=== PATIENT | female | born 1970 | race Caucasian/White ===

== ENCOUNTER 2016-12-16 11:18 | Emergency (ER) | payer SELFPAY ==
[2016-12-16 11:23] VITALS: BP 138/70
[2016-12-16] MEDS ORDERED: SULFAMETHOXAZOLE/TRIMETHOPRIM 800-160 MG TABLET PO ONE (11:45)
[2016-12-16] MEDS ORDERED: CEPHALEXIN 500 MG CAPSULE PO ONE (11:45)
[2016-12-16] MEDS ORDERED: IBUPROFEN 800 MG TABLET PO ONE (11:45)
[2016-12-16] MEDS ORDERED: DIPH/PERTUSS(ACELL)/TETANUS VAC/PF 0.5 ML SYR (>=10YO) IM ONE (11:45)
--- NOTE | 2016-12-16 11:48 | ER Document Report ---
HPI - HPI Patient complains to provider of: wrist injury Onset: Yesterday Onset/Duration: Gradual Quality of pain: Achy Pain Level: 3 Context: Patient states that she reached behind a desk and cut her wrists on a sharp object yesterday. Patient states today area has become swollen and painful and she is concerned that she is developing an infection. Associated Symptoms: Other - Left wrist pain. denies: Fever Exacerbated by: Movement Relieved by: Denies Similar symptoms previously: No Recently seen / treated by doctor: No - ROS ROS below otherwise negative: Yes Systems Reviewed and Negative: Yes All other systems reviewed and negative - CONSTITUTIONAL Constitutional: DENIES: Fever, Chills - REPRODUCTIVE Reproductive: DENIES: : - MUSCULOSKELETAL Musculoskeletal: REPORTS: Extremity pain, Swelling - DERM Skin Color: Erythema Skin Problems: Abrasion Past Medical History - General Information source: Patient - Social History Smoking Status: Never Smoker Frequency of alcohol use: None Drug Abuse: Other - iv drug use - last use several months ago Occupation: gis mapping technician Family History: Malignancy Renal/ Medical History: Denies: Hx Peritoneal Dialysis GI Medical History: Reports: Hx Gastroesophageal Reflux Disease Past Surgical History: Reports: Hx Hysterectomy, Hx Orthopedic Surgery - left knee arthroscopic surgery, Hx Tonsillectomy, Hx Tubal Ligation Vertical Provider Document - CONSTITUTIONAL Agree With Documented VS: Yes Exam Limitations: No Limitations General Appearance: WD/WN, No Apparent Distress - INFECTION CONTROL TRAVEL OUTSIDE OF THE [place] IN LAST 30 DAYS: No - HEENT HEENT: Atraumatic, Normocephalic - NECK Neck: Normal Inspection, Supple - RESPIRATORY Respiratory: Breath Sounds Normal, No Respiratory Distress O2 Sat by Pulse Oximetry: 95 - CARDIOVASCULAR Cardiovascular: Regular Rate, Regular Rhythm, No Murmur Pulses: Normal: Radial - MUSCULOSKELETAL/EXTREMETIES Musculoskeletal/Extremeties: MAEW, Tender - Left wrist tenderness over the radial aspect, patient with abrasion over the volar aspect of left wrist - NEURO Level of Consciousness: Awake, Alert, Appropriate Motor/Sensory: No Motor Deficit - DERM Integumentary: Warm, Dry, Abscess - Alert aspect of left wrist with surrounding erythema, palpable area of fluctuance. Patient with what appears to be multiple track ba to bilateral hands and wrist with makeup covering skin lesions Course - Re-evaluation Re-evalutation: 12/16/16 12:29 Patient initially denied any history of drug use, after confrontation with exam findings, and did acknowledge that she does have a previous history of IV drug use although states last use was several months ago. Patient insistent that she injured her wrist by cutting it on unknown sharp object yesterday at work. - Vital Signs Vital signs: Temp Pulse Resp BP Pulse Ox 98.1 F 81 16 138/70 H 95 12/16/16 11:23 12/16/16 11:23 12/16/16 11:23 12/16/16 11:23 12/16/16 11:23 Procedures - Incision and Drainage Left Wrist Type: Simple I&D procedure: Betadine prep applied Incision Method: Incision made with needle Amount/type of drainage: Moderate amount of purulent drainage removed after incision with needle Hands front picture: 1 - abscess with overlying abrasion and surrounding erythema Discharge - Discharge Clinical Impression: Abscess, Encounter for incision and drainage procedure Cellulitis Qualifiers: Site of cellulitis: extremity Site of cellulitis of extremity: upper extremity Laterality: left Qualified Code(s): L03.114 - Cellulitis of left upper limb Condition: Stable Disposition: HOME, SELF-CARE Instructions: Anti-Inflammatory Medication ([facility]), Cellulitis ([facility]), Cephalexin ([facility]), Trimethoprim-Sulfa ([facility]), Post Incision and Drainage, Abscess ([facility]) Additional Instructions: Generic discharge Return immediately for any new or worsening symptoms Followup with your primary care provider, call tomorrow to make a followup appointment Prescriptions: Cephalexin Monohydrate [Keflex 500 mg Capsule] 500 mg PO Q6H 7 Days Naproxen [Naprosyn 250 Nmg Tablet] 1 tab PO BID #14 tablet Sulfamethoxazole/Trimethoprim [Bactrim Ds Tablet] 1 each PO BID #20 tablet Referrals: SAMUEL AMBRIZ MD [Primary Care Provider] - 12/18/16
== END 2016-12-16 12:10 | disposition home or self-care (01) ==
LOC: ER 11:18
PROC: 0H9EXZZ Drainage of Left Lower Arm Skin, External Approach (ICD-10-PCS; principal; 2016-12-16)
DX: L03.114 Cellulitis of left upper limb (principal); S61.512A Laceration without foreign body of left wrist, initial encounter; W45.8XXA Other foreign body or object entering through skin, initial encounter
CPT/HCPCS: 90471; 90715; 99283

== ENCOUNTER 2017-12-28 07:49 | Emergency (ER) | payer SELFPAY ==
[2017-12-28 08:08] VITALS: BP 156/71
[2017-12-28] MEDS ORDERED: IBUPROFEN 800 MG TABLET PO ONE (09:34)
--- NOTE | 2017-12-28 09:58 | RADIOLOGY REPORT (SQ) ---
EXAM DESCRIPTION: WRIST LEFT 3 VIEWS COMPLETED DATE/TIME: 12/28/2017 9:50 am REASON FOR STUDY: pain swelling COMPARISON: None. NUMBER OF VIEWS: Three views. TECHNIQUE: AP, lateral, and oblique radiographic images acquired of the left wrist. LIMITATIONS: None. FINDINGS: MINERALIZATION: Normal. BONES: No acute fracture or dislocation. No worrisome bone lesions. Normal alignment. No significant arthritic changes. JOINTS AND SOFT TISSUES: No swelling. No calcifications. No foreign bodies. OTHER: No other significant finding. IMPRESSION: NEGATIVE STUDY OF THE LEFT WRIST. NO ACUTE POST-TRAUMATIC FINDINGS. NO EXPLANATION FOR P AIN. TECHNICAL DOCUMENTATION: JOB ID: [id number] [employer]- All Rights Reserved Reading location - IP/workstation name: [email or web address]
[2017-12-28] MEDS ORDERED: PREDNISONE 20 MG TABLET PO ONE (10:44)
--- NOTE | 2017-12-28 10:46 | ER Document Report ---
ED Hand/Wrist Injury - General Chief Complaint: Wrist Pain Stated Complaint: WRIST SWOLLEN Time Seen by Provider: 12/28/17 09:34 Mode of Arrival: Ambulatory Information source: Patient Notes: 7-year-old female presented ED for complaint of left wrist pain with redness and swelling for 4-5 days. She denied it. 3 but stated that the patient is getting more more painful. Denies any history of gout or arthritis. She did not have any injuries there is no lacerations there is no cuts. TRAVEL OUTSIDE OF THE [place] IN LAST 30 DAYS: No - HPI Injury to: Wrist Onset: Other - 4-5 days Timing: Worse Quality of pain: Burning, Pressure Severity: Moderate Pain Level: 2 Context: Swelling, Other - Related Data Allergies/Adverse Reactions: cyclobenzaprine HCl [From Flexeril] Adverse Reaction (Verified 12/16/16 11:22) Past Medical History - General Information source: Patient - Social History Smoking Status: Former Smoker Cigarette use (# per day): No Chew tobacco use (# tins/day): No Smoking Education Provided: No Frequency of alcohol use: None Drug Abuse: None Occupation: [employer] Lives with: Alone Family History: Malignancy Patient has suicidal ideation: No Patient has homicidal ideation: No - Past Medical History Cardiac Medical History: Reports: None Pulmonary Medical History: Reports: None EENT Medical History: Reports: None Neurological Medical History: Reports: None Endocrine Medical History: Reports: None Renal/ Medical History: Reports: None Malignancy Medical History: Reports: None GI Medical History: Reports: Hx Gastroesophageal Reflux Disease Musculoskeletal Medical History: Reports Hx Musculoskeletal Deformity Skin Medical History: Reports None Psychiatric Medical History: Reports: None Traumatic Medical History: Reports: None Infectious Medical History: Reports: None Past Surgical History: Reports: Hx Hysterectomy, Hx Orthopedic Surgery - left knee arthroscopic surgery, Hx Tonsillectomy, Hx Tubal Ligation Review of Systems - Review of Systems Constitutional: No symptoms reported EENT: No symptoms reported Cardiovascular: No symptoms reported Respiratory: No symptoms reported Gastrointestinal: No symptoms reported Genitourinary: No symptoms reported Female Genitourinary: No symptoms reported Musculoskeletal: Other - In his swelling left wrist Skin: Change in color - Slight erythema to the left wrist injuries Hematologic/Lymphatic: No symptoms reported Neurological/Psychological: No symptoms reported Physical Exam - Vital signs Vitals: Temp Pulse Resp BP Pulse Ox 98.6 F 99 16 156/71 H 100 12/28/17 08:05 12/28/17 08:05 12/28/17 08:05 12/28/17 08:05 12/28/17 08:05 Interpretation: Normal - General General appearance: Appears well, Alert - HEENT Head: Normocephalic, Atraumatic Eyes: Normal Pupils: PERRL - Respiratory Respiratory status: No respiratory distress Chest status: Nontender Breath sounds: Normal Chest palpation: Normal - Cardiovascular Rhythm: Regular Heart sounds: Normal auscultation Murmur: No - Abdominal Inspection: Normal Distension: No distension Bowel sounds: Normal Tenderness: Nontender Organomegaly: No organomegaly - Back Back: Normal, Nontender - Extremities General upper extremity: Normal ROM, Normal temperature General lower extremity: Normal inspection, Nontender, Normal color, Normal ROM , Normal temperature, Normal weight bearing. No: Phani's sign Wrist: Tender, Other - Erythema with swelling to left wrist. She has no injuries there are no lacerations no signs of any abscess or cellulitis. The redness is to the entire wrist. It is slightly warm to the touch. She has been afebrile and has had no signs or symptoms of any infection.. No: Abrasion , Axial load of thumb pain, Deformity, Dislocation, Ecchymosis, Instability, Laceration, Limited ROM, Navicular tenderness - Neurological Neuro grossly intact: Yes Cognition: Normal Orientation: AAOx4 [place] Coma Scale Eye Opening: Spontaneous [place] Coma Scale Verbal: Oriented [place] Coma Scale Motor: Obeys Commands [place] Coma Scale Total: 15 Speech: Normal Motor strength normal: LUE, RUE, LLE, RLE Sensory: Normal - Psychological Associated symptoms: Normal affect, Normal mood - Skin Skin Temperature: Warm Skin Moisture: Dry Skin Color: Normal Course - Re-evaluation Re-evalutation: 12/28/17 22:24 Patient was started on prednisone and ibuprofen and given instructions to follow -up with the orthopedic hand surgeon on Sunday. She was instructed to return to the ED for any increase in swelling redness or any fevers or any other signs of infection. - Vital Signs Vital signs: Temp Pulse Resp BP Pulse Ox 98.6 F 99 16 156/71 H 100 12/28/17 08:05 12/28/17 08:05 12/28/17 08:05 12/28/17 08:05 12/28/17 08:05 Procedures - Immobilization Left Wrist Time completed: 10:50 Immobilizer type: Cock-up Performed by: PCT Post-Proc Neuro Vasc Exam: Normal Alignment checked and good: Yes Discharge - Discharge Clinical Impression: Pain and swelling of left wrist Condition: Stable Disposition: HOME, SELF-CARE Additional Instructions: Gout You have been diagnosed as having gout. Gout is a problem caused by an excess of uric acid, a natural chemical found in the body. The cause of this disease is unknown. Gout arthritis occurs when crystals of uric acid form in the joints. The big toe is the most common joint involved, but any joint can become affected. Persons with gout may also form uric acid kidney stones, resulting in flank pain and blood in the urine. Nodules of uric acid may form under the skin. The first step of treatment is to decrease the inflammation in the joint with antiinflammatory medication. Medication to lower the uric acid level in the blood may then be prescribed. This medication should be taken regularly, as any sudden change in dosage may provoke an attack of gout. Some foods, such as red meat, can provoke an attack in some gout sufferers. Call the doctor if new symptoms arise, or if you do not improve. Gout Diet Changing your diet can decrease the uric acid in your blood. High levels of uric acid cause gouty arthritis and uric acid kidney stones. If you have gout , you should avoid meats that are high in purine. Meat products to avoid include liver, kidneys, and brains. In general, poultry is better than red meats. Seafoods to avoid include anchovies, sardines, hernández, mackerel, and scallops. In addition to limiting purine-rich foods, people with gout should limit protein intake to 10-15% of total calories. Carbohydrate intake should be around 50% of total daily calories. Limit fat intake to 30% of total daily calories. Cholesterol intake should be less than 300 mg/day. Maintain or achieve a healthy body weight. Weight loss should be gradual. Rapid weight loss can actually increase uric acid levels temporarily. Alcohol, especially beer, should be avoided. Get plenty of fluids. This dilutes urinary uric acid, and helps prevent uric acid kidney stones. Drink eight to twelve cups of water daily. SPLINT PRECAUTIONS: A splint has been placed. This will protect the area while healing begins. Your problem does NOT normally require a cast. It MUST, however, be held still! Keep the splint on ALL THE TIME until instructed to remove it by the doctor. As you begin to use the area, be careful. You shouldn't do anything which causes discomfort -- you may disturb the injury even with the splint in place. After the initial period of rest and elevation, if splint does not prevent pain when you move, come back. You may require placement of a different splint , or a cast. If there is unexpected severe pain, or numbness, discoloration, or swelling beyond the splint, you should return at once. If you feel that the splint has broken or become loose, come back. USE OF [id number] IBUPROFEN: Ibuprofen (Advil, Nuprin, Medipren, Motrin IB) is a medication for fever and pain control. In addition, it has anti- inflammatory effects which may be beneficial, especially in the treatment of injuries. It's best to take ibuprofen with food. Persons with ulcer disease or allergy to aspirin should notify their physician of this before taking ibuprofen. Ibuprofen can be given every four to six hours, for a total of four doses daily. Age Pain or fever dose Antiinflammatory dose 6-8 yr 200 mg (1 tab) 200 mg (1 tab) 9-11 yr 200 mg (1 tab) 200-400 mg (1-2 tab) 11-14 yr 200-400 mg (1-2 tab) 400 mg (2 tab) 15-adult 400 mg (2 tab) 600 mg (3 tab) FOLLOW-UP CARE: If you have been referred to a physician for follow-up care, call the physician s office for an appointment as you were instructed or within the next two days. If you experience worsening or a significant change in your symptoms, notify the physician immediately or return to the Emergency Department at any time for re-evaluation. Prescriptions: Prednisone [Sterapred Ds] 1 pkg PO ASDIR PRN 12 Days tab.ds.pk PRN Reason: Forms: Elevated Blood Pressure, Smoking Cessation Education Referrals: SAMUEL AMBRIZ MD [Primary Care Provider] - Follow up tomorrow KOSTAS PERSAUD DO [ACTIVE STAFF] - Follow up tomorrow
== END 2017-12-28 11:00 | disposition home or self-care (01) ==
LOC: ER 07:49
DX: M25.572 Pain in left ankle and joints of left foot (principal); M25.432 Effusion, left wrist; L53.9 Erythematous condition, unspecified; Z87.891 Personal history of nicotine dependence
CPT/HCPCS: 99283; 73110; L3908; J7512

== ENCOUNTER 2018-05-11 10:56 | Emergency (ER) | payer SELFPAY ==
[2018-05-11 11:00] VITALS: BP 149/76
--- NOTE | 2018-05-11 11:06 | ER Document Report ---
ED Medical Screen (RME) - General Chief Complaint: Abscess Stated Complaint: POSSIBLE ABSCESS Time Seen by Provider: 05/11/18 11:04 Mode of Arrival: Ambulatory Information source: Patient TRAVEL OUTSIDE OF THE [place] IN LAST 30 DAYS: No - HPI Patient complains to provider of: L hand pain Onset: Other - pt. with tender, swollen area on dorsal aspect of L hand which started draining last pm. - Related Data Allergies/Adverse Reactions: cyclobenzaprine HCl [From [facility]] Adverse Reaction (Verified 05/11/18 10:57) Past Medical History - Social History Chew tobacco use (# tins/day): No Frequency of alcohol use: None Drug Abuse: None Renal/ Medical History: Denies: Hx Peritoneal Dialysis GI Medical History: Reports: Hx Gastroesophageal Reflux Disease Musculoskeltal Medical History: Reports Hx Musculoskeletal Deformity Past Surgical History: Reports: Hx Hysterectomy, Hx Orthopedic Surgery - left knee arthroscopic surgery, Hx Tonsillectomy, Hx Tubal Ligation Physical Exam - Vital signs Vitals: Temp Pulse Resp BP Pulse Ox 98.7 F 94 16 149/76 H 96 05/11/18 10:58 05/11/18 10:58 05/11/18 10:58 05/11/18 10:58 05/11/18 10:58 Course - Vital Signs Vital signs: Temp Pulse Resp BP Pulse Ox 98.7 F 94 16 149/76 H 96 05/11/18 10:58 05/11/18 10:58 05/11/18 10:58 05/11/18 10:58 05/11/18 10:58 Doctor's Discharge - Discharge Referrals: SAMUEL AMBRIZ MD [Primary Care Provider] - Follow up as needed
[2018-05-11 11:23] LABS: ABSOLUTE BASOPHILS # (AUTO) 0.1 10^3/uL (0.0-0.2); ABSOLUTE EOSINOPHILS # (AUTO) 0.2 10^3/uL (0.0-0.6); ABSOLUTE LYMPHOCYTES (AUTO) 2.6 10^3/uL (0.5-4.7); ABSOLUTE MONOCYTES (AUTO) 0.8 10^3/uL (0.1-1.4); BASOPHILS % (AUTO) 0.9 % (0-2); EOSINOPHILS % (AUTO) 1.6 % (0-6); HEMATOCRIT 35.9 % (36.0-47.0); HEMOGLOBIN 11.9 g/dL (12.0-15.5); LYMPHOCYTES % (AUTO) 20.2 % (13-45); MEAN CORPUSCULAR HEMOGLOBIN 28.5 pg (27.0-33.4); MEAN CORPUSCULAR HGB CONC 33.3 g/dL (32.0-36.0); MEAN CORPUSCULAR VOLUME 86 fl (80-97); MONOCYTES % (AUTO) 6.6 % (3-13); PLATELET COUNT 484 10^3/uL (150-450); RED CELL DISTRIBUTION WIDTH 13.9 % (11.5-14.0); SEGMENTED NEUTROPHILS % (AUTO) 70.7 % (42-78); TOTAL CELLS COUNTED % (AUTO) 100 %; WHITE BLOOD COUNT 12.8 10^3/uL (4.0-10.5)
[2018-05-11 11:35] LABS: ALANINE AMINOTRANSFERASE 24 U/L (9-52); ALBUMIN 4.5 g/dL (3.5-5.0); ALKALINE PHOSPHATASE 60 U/L (38-126); ANION GAP 13 (5-19); ASPARTATE AMINO TRANSFERASE 27 U/L (14-36); BILIRUBIN,DIRECT 0.3 mg/dL (0.0-0.4); BILIRUBIN,TOTAL 0.7 mg/dL (0.2-1.3); BLOOD UREA NITROGEN 13 mg/dL (7-20); CALCIUM 9.8 mg/dL (8.4-10.2); CARBON DIOXIDE 24 mmol/L (22-30); CHLORIDE 99 mmol/L (98-107); GLUCOSE 111 mg/dL (75-110); POTASSIUM 4.4 mmol/L (3.6-5.0); SODIUM 135.9 mmol/L (137-145); TOTAL PROTEIN 7.9 g/dL (6.3-8.2)
--- NOTE | 2018-05-11 11:38 | ER Document Report ---
ED General - General Chief Complaint: Abscess Stated Complaint: POSSIBLE ABSCESS Time Seen by Provider: 05/11/18 11:04 Mode of Arrival: Ambulatory TRAVEL OUTSIDE OF THE [place] IN LAST 30 DAYS: No - HPI Patient complains to provider of: left hand pain Onset: Other - 47-year-old female [id number] Molina that presents for evaluation of pain and swelling along the base of her left hand. She notes that this is developed over the last couple of days. Denies any fevers or chills chest pain shortness of breath abdominal pain diarrhea consultation dysuria previous episodes of abscesses in the past she notes that she is concerned that it needs to be drained and prompted her to seek evaluation today. She has not tried anything to try and make this better. - Related Data Allergies/Adverse Reactions: cyclobenzaprine HCl [From Flexeril] Adverse Reaction (Verified 05/11/18 10:57) Past Medical History - General Information source: Patient - Social History Smoking Status: Never Smoker Chew tobacco use (# tins/day): No Frequency of alcohol use: None Drug Abuse: None Family History: Malignancy Patient has suicidal ideation: No Patient has homicidal ideation: No Renal/ Medical History: Denies: Hx Peritoneal Dialysis GI Medical History: Reports: Hx Gastroesophageal Reflux Disease Musculoskeletal Medical History: Reports Hx Musculoskeletal Deformity Past Surgical History: Reports: Hx Hysterectomy, Hx Orthopedic Surgery - left knee arthroscopic surgery, Hx Tonsillectomy, Hx Tubal Ligation Review of Systems - Review of Systems -: Yes All other systems reviewed and negative Physical Exam - Vital signs Vitals: Temp Pulse Resp BP Pulse Ox 98.7 F 94 16 149/76 H 96 05/11/18 10:58 05/11/18 10:58 05/11/18 10:58 05/11/18 10:58 05/11/18 10:58 Interpretation: Normal - General General appearance: Appears well, Alert - HEENT Head: Normocephalic, Atraumatic Eyes: Normal Pupils: PERRL - Respiratory Respiratory status: No respiratory distress Chest status: Nontender Breath sounds: Normal Chest palpation: Normal - Cardiovascular Rhythm: Regular Heart sounds: Normal auscultation Murmur: No - Abdominal Inspection: Normal Distension: No distension Bowel sounds: Normal Tenderness: Nontender Organomegaly: No organomegaly - Back Back: Normal, Nontender - Extremities General lower extremity: Normal inspection, Nontender, Normal color, Normal ROM, Normal temperature, Normal weight bearing. No: Phani's sign Forearm: Normal Hand: Other - The left hand demonstrates marked erythema along the ulnar aspect of the palm of the hand with an area of swelling in the middle of the pad with a erythematous taut top, there is some stranding proximally which passes the wrist over the dorsal aspect of the hand - Neurological Neuro grossly intact: Yes Cognition: Normal Orientation: AAOx4 Kerri Coma Scale Eye Opening: Spontaneous Kerri Coma Scale Verbal: Oriented Kerri Coma Scale Motor: Obeys Commands [place] Coma Scale Total: 15 Speech: Normal Motor strength normal: LUE, RUE, LLE, RLE Sensory: Normal - Psychological Associated symptoms: Normal affect, Normal mood - Skin Skin Temperature: Warm Skin Moisture: Dry Skin Color: Normal Course - Re-evaluation Re-evalutation: 05/11/18 15:57 47-year-old female presents for swelling and redness along the base of the left hand. Bedside ultrasound demonstrates that the patient does have a fluid collection along the base of the left hand without any obvious vascular involvement. There is no obvious foreign body. X-ray ordered through triage is not demonstrate any abnormality. Labs drawn through triage demonstrate a leukocytosis and elevated CRP. I discussed with the patient the options including IV antibiotics blood cultures etc. she received a dose of IV antibiotics prior to my bedside ultrasound, there is a fluid collection which appears amenable to drainage at the bedside. We discussed observation admission to the hospital and further IV antibiotics for potential trial of oral antibiotics at home she is requested a trial of oral antibiotics at home and follow-up. Patient received vancomycin through the IV. She was instructed to come back in case of any worsening. She was given a follow-up appointment with Dr. Santiago in his clinic. At the t aidan of discharge she was able to range the hand appropriately, there is a strong palpable radial pulse. Brisk capillary refill in all 5 digits. She was discharged with return precautions and expectant management. - Vital Signs Vital signs: Temp Pulse Resp BP Pulse Ox 98.7 F 94 16 149/76 H 96 05/11/18 10:58 05/11/18 10:58 05/11/18 10:58 05/11/18 10:58 05/11/18 10:58 - Laboratory Result Diagrams: 05/11/18 11:10 05/11/18 11:10 Laboratory results interpreted by me: 05/11/18 05/11/18 05/11/18 11:10 11:10 11:10 WBC 12.8 H Hgb 11.9 L Hct 35.9 L Plt Count 484 H Absolute Neutrophils 9.0 H ESR 49 H Sodium 135.9 L Glucose 111 H C-Reactive Protein 05/11/18 11:10 WBC Hgb Hct Plt Count Absolute Neutrophils ESR Sodium Glucose C-Reactive Protein 25.8 H Procedures - Incision and Drainage Left Hand Type: Simple, Single Anesthetic type: 1% Lidocaine w/epi mL's of anesthetic: 8 Blade size: 11 I&D procedure: Betadine prep applied Incision Method: Incision made by scalpel Amount/type of drainage: 5 Hands back picture: 1 - Erythema and swelling - Ultrasound/Bedside Ultrasound/Bedside Ultrasound: Other - Ultrasound of the soft tissue of the hand demonstrates a anechoic 2 x 1 cm fluid collection with cobblestoning in the surrounding skin Discharge - Discharge Clinical Impression: Hand abscess Cellulitis Qualifiers: Site of cellulitis: unspecified site Qualified Code(s): L03.90 - Cellulitis, unspecified Condition: Good Disposition: HOME, SELF-CARE Instructions: Abscess ([facility]), Oral Narcotic Medication ([facility]), Post Incision and Drainage, Trimethoprim-Sulfa ([facility]) Additional Instructions: Your seen today in the emergency department for the abscess on her hand. The abscess on her hand was drained. You also cellulitis. Cellulitis in your arm is almost bad enough to require hospitalization, if you have any worsening pain, fevers, chills you should return to the emergency room. Prescriptions: Hydrocodone/Acetaminophen [[place] 5-325 mg Tablet] 1 tab PO TID PRN #9 tablet PRN Reason: Sulfamethoxazole/Trimethoprim [Bactrim Ds Tablet] 1 each PO BID 10 Days #20 tablet Referrals: KOSTAS PERSAUD DO [ACTIVE STAFF] - Follow up in 3-5 days
--- NOTE | 2018-05-11 11:51 | RADIOLOGY REPORT (SQ) ---
EXAM DESCRIPTION: HAND LEFT 3 VIEWS COMPLETED DATE/TIME: 05/11/2018 11:42 am REASON FOR STUDY: L hand pain COMPARISON: None. EXAM PARAMETERS: NUMBER OF VIEWS: Three views. TECHNIQUE: AP, lateral and oblique radiographic images acquired of the left hand. LIMITATIONS: None. FINDINGS: MINERALIZATION: Normal. BONES: No acute fracture or dislocation. No worrisome bone lesions. JOINTS: No effusions. SOFT TISSUES: No soft tissue swelling. No foreign body. OTHER: No other significant finding. IMPRESSION: NEGATIVE STUDY OF THE LEFT HAND. NO RADIOGRAPHIC EVIDENCE OF ACUTE INJURY. TECHNICAL DOCUMENTATION: JOB ID: [id number] [employer]- All Rights Reserved Reading location - IP/workstation name: [email or web address]
[2018-05-11] MEDS ORDERED: VANCOMYCIN HCL INJ 1000 MG VIAL IV ONE (12:08)
[2018-05-11] MEDS ORDERED: LIDOCAINE 1%/EPINEPHRINE INJ 20 ML VIAL INJ ONE (12:56)
== END 2018-05-11 16:19 | disposition home or self-care (01) ==
LOC: ER 10:56
DX: L03.90 Cellulitis, unspecified (principal); L02.512 Cutaneous abscess of left hand
CPT/HCPCS: 36415; 99284; 96365; 96366; 87040; 85025; 85652; 86140; 80053; 73130; 10060; A6266; J3490; J3370

== ENCOUNTER 2019-01-12 09:10 | Emergency (ER) | payer SELFPAY ==
--- NOTE | 2019-01-12 10:43 | ER Document Report ---
ED Medical Screen (RME) - General Chief Complaint: Abdominal Pain Stated Complaint: ABDOMINAL PAIN Time Seen by Provider: 01/12/19 10:38 Primary Care Provider: JU EDWARDS MD [Primary Care Provider] - Follow up as needed Mode of Arrival: Ambulatory Information source: Patient Notes: 48 yo female presents to ed for left upper quadrant abdominal pain for 3 days. No NVD. 2/5 sometimes sharp stabbing now cramping. denies any burning frequency or pain with urination. Last bm this am. Patient is alert oriented respirations regular and unlabored speaking in full sentences walks with even steady gait. I have greeted and performed a rapid initial assessment of this patient. A comprehensive ED assessment and evaluation of the patient, analysis of test results and completion of medical decision making process will be conducted by an additional ED providers. TRAVEL OUTSIDE OF THE [place] IN LAST 30 DAYS: No - Related Data Allergies/Adverse Reactions: cyclobenzaprine HCl [From Flexeril] Adverse Reaction (Verified 01/12/19 10:43) Past Medical History - Social History Cigarette use (# per day): No Frequency of alcohol use: None Drug Abuse: None Lives with: Family Renal/ Medical History: Denies: Hx Peritoneal Dialysis GI Medical History: Reports: Hx Gastroesophageal Reflux Disease Musculoskeltal Medical History: Reports Hx Arthritis, Reports Hx Fibromyalgia, Reports Hx Musculoskeletal Deformity Past Surgical History: Reports: Hx Hysterectomy, Hx Orthopedic Surgery - left knee arthroscopic surgery, Hx Tonsillectomy, Hx Tubal Ligation - Immunizations Immunizations up to date: No Hx Diphtheria, Pertussis, Tetanus Vaccination: No Physical Exam - Vital signs Vitals: Temp Pulse Resp BP Pulse Ox 98.1 F 78 18 141/73 H 99 01/12/19 09:22 01/12/19 09:22 01/12/19 09:22 01/12/19 09:22 01/12/19 09:22 Course - Vital Signs Vital signs: Temp Pulse Resp BP Pulse Ox 97.9 F 79 16 133/77 H 94 01/12/19 12:22 01/12/19 12:22 01/12/19 12:22 01/12/19 12:22 01/12/19 12:22 - Laboratory Result Diagrams: 01/12/19 11:32 01/12/19 11:32 Laboratory results interpreted by me: 01/12/19 01/12/19 01/12/19 11:01 11:32 11:32 RDW 14.1 H Plt Count 510 H Glucose 147 H Calcium 10.8 H Total Protein 8.6 H Urine Blood SMALL H Ur Leukocyte Esterase LARGE H Doctor's Discharge - Discharge Referrals: JU EDWARDS MD [Primary Care Provider] - Follow up as needed
[2019-01-12 11:21] LABS: APPEARANCE,URINE SLIGHTLY-CLOUDY; BILIRUBIN,URINE NEGATIVE (NEGATIVE); COLOR,URINE STRAW; GLUCOSE, URINE NEGATIVE (NEGATIVE); KETONES,URINE NEGATIVE (NEGATIVE); LEUKOCYTE ESTERASE,URINE LARGE (NEGATIVE); NITRITE,URINE NEGATIVE (NEGATIVE); PROTEIN,URINE NEGATIVE (NEGATIVE); URINE SPECIFIC GRAVITY 1.002; UROBILINOGEN,URINE NEGATIVE mg/dL (<2.0)
[2019-01-12 11:43] LABS: ABSOLUTE BASOPHILS # (AUTO) 0.1 10^3/uL (0.0-0.2); ABSOLUTE LYMPHOCYTES (AUTO) 2.4 10^3/uL (0.5-4.7); ABSOLUTE MONOCYTES (AUTO) 0.5 10^3/uL (0.1-1.4); ABSOLUTE NEUT (AUTO) 6.4 10^3/uL (1.7-8.2); BASOPHILS % (AUTO) 0.7 % (0-2); EOSINOPHILS % (AUTO) 0.3 % (0-6); HEMATOCRIT 38.4 % (36.0-47.0); HEMOGLOBIN 12.5 g/dL (12.0-15.5); LYMPHOCYTES % (AUTO) 25.6 % (13-45); MEAN CORPUSCULAR HEMOGLOBIN 27.7 pg (27.0-33.4); MEAN CORPUSCULAR HGB CONC 32.7 g/dL (32.0-36.0); MEAN CORPUSCULAR VOLUME 85 fl (80-97); MONOCYTES % (AUTO) 5.5 % (3-13); PLATELET COUNT 510 10^3/uL (150-450); RED BLOOD COUNT 4.53 10^6/uL (3.72-5.28); RED CELL DISTRIBUTION WIDTH 14.1 % (11.5-14.0); SEGMENTED NEUTROPHILS % (AUTO) 67.9 % (42-78); TOTAL CELLS COUNTED % (AUTO) 100 %; WHITE BLOOD COUNT 9.5 10^3/uL (4.0-10.5)
[2019-01-12 12:00] LABS: ALBUMIN 4.9 g/dL (3.5-5.0); ALKALINE PHOSPHATASE 83 U/L (38-126); ANION GAP 15 (5-19); ASPARTATE AMINO TRANSFERASE 23 U/L (14-36); BILIRUBIN,DIRECT 0.2 mg/dL (0.0-0.4); BILIRUBIN,TOTAL 0.7 mg/dL (0.2-1.3); BLOOD UREA NITROGEN 13 mg/dL (7-20); CALCIUM 10.8 mg/dL (8.4-10.2); CARBON DIOXIDE 25 mmol/L (22-30); CHLORIDE 98 mmol/L (98-107); GLUCOSE 147 mg/dL (75-110); POTASSIUM 4.2 mmol/L (3.6-5.0); TOTAL PROTEIN 8.6 g/dL (6.3-8.2)
--- NOTE | 2019-01-12 12:03 | ER Document Report ---
ED General - General Chief Complaint: Abdominal Pain Stated Complaint: ABDOMINAL PAIN Time Seen by Provider: 01/12/19 10:38 Primary Care Provider: JU EDWARDS MD [Primary Care Provider] - Follow up as needed Mode of Arrival: Ambulatory TRAVEL OUTSIDE OF THE [place] IN LAST 30 DAYS: No - HPI Notes: 48-year-old female to the emergency department with complaints of left upper quadrant abdominal pain for the past 4 days. She denies any fevers, chills, vomiting, diarrhea, constipation, chest pain, headache, shortness of breath. She states that she takes Percocet on a regular basis for pain management and she states that it does help but she is concerned because it is a new source of pain for her. She denies any blunt trauma. She denies any dysuria. She denies any hematuria. She is never had a kidney stone. She never had pancreatitis. She denies any other complaints. Last bowel movement was this morning. - Related Data Allergies/Adverse Reactions: cyclobenzaprine HCl [From Flexeril] Adverse Reaction (Verified 01/12/19 10:43) Past Medical History - General Information source: Patient - Social History Smoking Status: Never Smoker Cigarette use (# per day): No Chew tobacco use (# tins/day): No Frequency of alcohol use: None Drug Abuse: None Lives with: Family Family History: Malignancy Patient has suicidal ideation: No Patient has homicidal ideation: No Renal/ Medical History: Denies: Hx Peritoneal Dialysis GI Medical History: Reports: Hx Gastroesophageal Reflux Disease Musculoskeletal Medical History: Reports Hx Arthritis, Reports Hx Fibromyalgia, Reports Hx Musculoskeletal Deformity Past Surgical History: Reports: Hx Hysterectomy, Hx Orthopedic Surgery - left knee arthroscopic surgery, Hx Tonsillectomy, Hx Tubal Ligation - Immunizations Immunizations up to date: No Hx Diphtheria, Pertussis, Tetanus Vaccination: No Review of Systems - Review of Systems Constitutional: denies: Chills, Fever EENT: No symptoms reported Cardiovascular: denies: Chest pain, Palpitations, Dyspnea, Syncope, Dizziness, Lightheaded Respiratory: denies: Cough, Short of breath Gastrointestinal: Abdominal pain. denies: Diarrhea, Nausea, Vomiting, Constip ation Genitourinary: denies: Dysuria, Frequency, Flank pain, Hematuria, Incontinence Musculoskeletal: No symptoms reported Skin: No symptoms reported Hematologic/Lymphatic: No symptoms reported Neurological/Psychological: No symptoms reported -: Yes All other systems reviewed and negative Physical Exam - Vital signs Vitals: Temp Pulse Resp BP Pulse Ox 98.1 F 78 18 141/73 H 99 01/12/19 09:22 01/12/19 09:22 01/12/19 09:22 01/12/19 09:22 01/12/19 09:22 Interpretation: Normal - General General appearance: Appears well, Alert In distress: None - HEENT Head: Normocephalic, Atraumatic Eyes: Normal Pupils: PERRL - Respiratory Respiratory status: No respiratory distress Chest status: Nontender Breath sounds: Normal Chest palpation: Normal - Cardiovascular Rhythm: Regular Heart sounds: Normal auscultation Murmur: No - Abdominal Inspection: Normal Distension: No distension Bowel sounds: Normal Tenderness: Nontender - TTP over the LUQ. No tenderness to palpation of the LLQ, RLQ, and RUQ. Mild discomfort to the epigastrium with palpation. There is no rebound, negative Ivor sign, no McBurney., Tender. No: Guarding, Rebound Organomegaly: No organomegaly - Back Back: Normal, Nontender. No: CVA tenderness - Neurological Neuro grossly intact: Yes Cognition: Normal Orientation: AAOx4 Kirby Coma Scale Eye Opening: Spontaneous Kerri Coma Scale Verbal: Oriented Kerri Coma Scale Motor: Obeys Commands Kirby Coma Scale Total: 15 Speech: Normal Motor strength normal: LUE, RUE, LLE, RLE Sensory: Normal - Psychological Associated symptoms: Normal affect, Normal mood - Skin Skin Temperature: Warm Skin Moisture: Dry Skin Color: Normal Course - Re-evaluation Re-evalutation: 01/12/19 15:25 Abdomen/Pelvis CT 01/12/19 12:20 IMPRESSION: No acute findings. Impression:. Left upper quadrant abdominal pain, urinary tract infection. Obtain CT scan of the abdomen which did not show an acute abdominal process. She does not have a leukocytosis, and acute kidney injury, electrolyte derailment, or any other significant abnormalities in labs other than her urine appears to have a UTI. Did give patient a gram of Rocephin as well as pain control here. Plan will be to send home with pain control and antinausea medicines and have her take her regular chronic pain medicine. We will have her follow-up with her primary care physician. Discussed with patient and her significant other who is bedside and they agree with the plan. - Vital Signs Vital signs: Temp Pulse Resp BP Pulse Ox 97.9 F 79 16 133/77 H 94 01/12/19 12:22 01/12/19 12:22 01/12/19 12:22 01/12/19 12:22 01/12/19 12:22 - Laboratory Result Diagrams: 01/12/19 11:32 01/12/19 11:32 Laboratory results interpreted by me: 01/12/19 01/12/19 01/12/19 11:01 11:32 11:32 RDW 14.1 H Plt Count 510 H Glucose 147 H Calcium 10.8 H Total Protein 8.6 H Urine Blood SMALL H Ur Leukocyte Esterase LARGE H - Diagnostic Test Radiology reviewed: Image reviewed, Reports reviewed Discharge - Discharge Clinical Impression: LUQ abdominal pain UTI (urinary tract infection) Qualifiers: Urinary tract infection type: acute cystitis Hematuria presence: without hematuria Qualified Code(s): N30.00 - Acute cystitis without hematuria Condition: Stable Disposition: HOME, SELF-CARE Instructions: Urinary Tract Infection ([facility]), Abdominal Pain ([facility]) Additional Instructions: Return in the next 8 to 24 hours if your symptoms worsen with intractable vomiting, intractable pain, fevers, chest pain, shortness of breath or any other complaints or concerns. Follow-up with primary care without fail the next 2 to 3 days. Take your regular Percocet at home and also take antinausea medicine as well as antibiotics. Push fluids. Rest. Prescriptions: Cephalexin Monohydrate [Keflex 500 mg Capsule] 500 mg PO BID 7 Days #14 capsule Ondansetron [Zofran Odt 4 mg Tablet] 1 - 2 tab PO Q4H PRN #15 tab.rapdis PRN Reason: For Nausea/Vomiting Referrals: JU EDWARDS MD [Primary Care Provider] - Follow up in 3-5 days
[2019-01-12] MEDS ORDERED: MORPHINE SULFATE 10 MG/ML INJ IV ONE (12:20)
[2019-01-12] MEDS ORDERED: ONDANSETRON HCL INJ/PF 4 MG/2 ML SDV IV ONE (12:20)
[2019-01-12] MEDS ORDERED: NORMAL SALINE 1000 ML 1,000 ML IV ONE (12:21)
[2019-01-12] MEDS ORDERED: CEFTRIAXONE 1 GM/D5W RTU 1 GM/50 ML RTUPB IV ONE ×2 (12:21→12:37)
--- NOTE | 2019-01-12 13:31 | RADIOLOGY REPORT (SQ) ---
EXAM DESCRIPTION: CT ABD/PELVIS WITH IV ONLY COMPLETED DATE/TIME: 01/12/2019 1:08 pm REASON FOR STUDY: LUQ abd pain COMPARISON: None. TECHNIQUE: CT scan of the abdomen and pelvis performed using helical scanning technique with dynamic intravenous contrast injection. No oral contrast. Images reviewed with lung, soft tissue, and bone windows. Reconstructed coronal and sagittal MPR images reviewed. Delayed images for evaluation of the urinary system also acquired. All images stored on PACS. All CT scanners at this facility use dose modulation, iterative reconstruction, and/or weight based d osing when appropriate to reduce radiation dose to as low as reasonably achievable (ALARA). [facility]: Dose Right [facility]: CareDose [facility]: Dose Right [facility]: Teradose 4D [facility]: [email or web address] CONTRAST TYPE AND DOSE: contrast/concentration: Isovue mg/ml; Total Contrast Delivered: 90.0 ml; To sanya Saline Delivered: 70.0 ml RENAL FUNCTION: GFR > 60. RADIATION DOSE: CT Rad equipment meets quality standard of care and radiation dose reduction techniq ues were employed. CTDIvol: 8.2 - 9.8 mGy. DLP: 892 mGy-cm.. LIMITATIONS: None. FINDINGS: LOWER CHEST: No significant findings. No nodules or infiltrates. LIVER: Normal size. No masses. No dilated ducts. SPLEEN: Normal size. No focal lesions. PANCREAS: No masses. No significant calcifications. No adjacent inflammation or peripancreatic fluid collections. Pancreatic duct not dilated. GALLBLADDER: No identified stones by CT criteria. No inflammatory changes to suggest cholecystitis. ADRENAL GLANDS: No significant masses or asymmetry. RIGHT KIDNEY AND URETER: No solid masses. No significant calcifications. No hydronephrosis or hyd roureter. LEFT KIDNEY AND URETER: No solid masses. No significant calcifications. No hydronephrosis or hydr oureter. AORTA AND VESSELS: No aneurysm. RETROPERITONEUM: No retroperitoneal adenopathy, hemorrhage or masses. BOWEL AND PERITONEAL CAVITY: No masses or inflammatory changes. No free fluid or peritoneal masses. APPENDIX: Not visualized. PELVIS: No mass. No free fluid. Normal bladder. ABDOMINAL WALL: No masses. No hernias. BONES: Nothing acute. OTHER: No other significant finding. IMPRESSION: No acute findings. TECHNICAL DOCUMENTATION: JOB ID: [id number] Quality ID # [id number]: Final reports with documentation of one or more dose reduction techniques (e.g., Au tomated exposure control, adjustment of the mA and/or kV according to patient size, use of iterative reconstruction technique) 2010 [employer]- All Rights Reserved Reading location - IP/workstation name: [email or web address]
[2019-01-12] MEDS ORDERED: OXYCODONE-ACETAMINOPHEN 5-325 MG TABLET PO ONE (15:33)
[2019-01-12 15:49] VITALS: BP 139/67
== END 2019-01-12 15:50 | disposition home or self-care (01) ==
LOC: ER 09:10
DX: N30.00 Acute cystitis without hematuria (principal); R10.12 Left upper quadrant pain; Z90.710 Acquired absence of both cervix and uterus
CPT/HCPCS: 99284; 96361; 96375; 96365; 36415; 87086; 83690; 85025; 80053; 81001; 74177; J2270; J2405; J7030; J0696

== ENCOUNTER 2020-01-18 15:03 | Emergency (ER) | payer BC ==
[2020-01-18 15:10] VITALS: BP 132/68
--- NOTE | 2020-01-18 15:23 | ER Document Report ---
HPI - HPI Patient complains to provider of: Scalp pain Time Seen by Provider: 01/18/20 15:17 Onset: Other - 4 days Onset/Duration: Persistent Pain Level: 4 Context: Patient presents with a 4-day history of a tender painful swollen area to left occipital scalp. Patient denies any injury. Patient denies any fever. Exacerbated by: Denies Relieved by: Denies Similar symptoms previously: No Recently seen / treated by doctor: No - ROS ROS below otherwise negative: Yes Systems Reviewed and Negative: Yes All other systems reviewed and negative - CONSTITUTIONAL Constitutional: DENIES: Fever, Chills - GASTROINTESTINAL Gastrointestinal: DENIES: Nausea - REPRODUCTIVE Reproductive: DENIES: : - DERM Skin Color: Normal Notes: Scalp tenderness with lump Past Medical History - General Information source: Patient - Social History Smoking Status: Former Smoker Frequency of alcohol use: None Drug Abuse: None Family History: Malignancy Patient has homicidal ideation: No Renal/ Medical History: Denies: Hx Peritoneal Dialysis GI Medical History: Reports: Hx Gastroesophageal Reflux Disease Musculoskeletal Medical History: Reports Hx Arthritis, Reports Hx Fibromyalgia, Reports Hx Musculoskeletal Deformity Past Surgical History: Reports: Hx Hysterectomy, Hx Orthopedic Surgery - left knee arthroscopic surgery, Hx Tonsillectomy, Hx Tubal Ligation - Immunizations Immunizations up to date: No Hx Diphtheria, Pertussis, Tetanus Vaccination: No Vertical Provider Document - CONSTITUTIONAL Agree With Documented VS: Yes Exam Limitations: No Limitations General Appearance: WD/WN, No Apparent Distress - INFECTION CONTROL TRAVEL OUTSIDE OF THE [place] IN LAST 30 DAYS: No - HEENT HEENT: Atraumatic, Normocephalic - NECK Neck: Normal Inspection, Supple. negative: Lymphadenopathy-Left, Lymphadenopathy-Right - RESPIRATORY Respiratory: Breath Sounds Normal, No Respiratory Distress - CARDIOVASCULAR Cardiovascular: Regular Rate, Regular Rhythm - MUSCULOSKELETAL/EXTREMETIES Musculoskeletal/Extremeties: MAEW - NEURO Level of Consciousness: Awake, Alert, Appropriate Motor/Sensory: No Motor Deficit - DERM Integumentary: Warm, Dry. negative: Abscess Notes: Patient with tender erythematous area to the left occipital scalp with a central scabbed lesion. No fluctuance, no concern for abscess at this time. Course - Re-evaluation Re-evalutation: 01/18/20 Patient with erythema surrounding a scabbed central lesion, no fluctuance, no concern for drainable abscess at this time. Will place patient on antibiotics and encourage frequent use of warm packs. Discussed worsening symptoms that patient should return immediately for. Patient verbalized understanding and is agreeable with discharge plan of care. - Vital Signs Vital signs: Temp Pulse Resp BP Pulse Ox 98.2 F 71 20 132/68 H 98 01/18/20 15:08 01/18/20 15:08 01/18/20 15:08 01/18/20 15:08 01/18/20 15:08 Discharge - Discharge Clinical Impression: Cellulitis Qualifiers: Site of cellulitis: head Qualified Code(s): L03.811 - Cellulitis of head [any part, except face] Condition: Stable Disposition: HOME, SELF-CARE Instructions: Cellulitis ([facility]), Cephalexin ([facility]), Trimethoprim-Sulfa ([facility]) Additional Instructions: Return immediately for any new or worsening symptoms Followup with your primary care provider, call tomorrow to make a followup appointment Apply warm compresses to the area frequently Prescriptions: Mupirocin [Bactroban 2% Ointment 22 gm] 1 applic TP TID #22 gm Cephalexin Monohydrate [Keflex 500 mg Capsule] 500 mg PO Q6H 5 Days #20 capsule Referrals: JU EDWARDS MD [Primary Care Provider] - Follow up as needed
== END 2020-01-18 15:34 | disposition home or self-care (01) ==
LOC: ER 15:03
DX: L03.811 Cellulitis of head [any part, except face] (principal); R51 Headache; R22.0 Localized swelling, mass and lump, head; Z87.891 Personal history of nicotine dependence
CPT/HCPCS: 99283

== ENCOUNTER 2020-03-01 22:22 | Emergency (ER) | payer SELFPAY ==
[2020-03-01] MEDS ORDERED: KETOROLAC TROMETHAMINE 60 MG/2 ML SDV IM ONE (22:33)
--- NOTE | 2020-03-01 22:36 | ER Document Report ---
ED Medical Screen (RME) - General Chief Complaint: Low Back Pain Stated Complaint: BACK PAIN Time Seen by Provider: 03/01/20 22:32 Primary Care Provider: JU EDWARDS MD [Primary Care Provider] - Follow up as needed Mode of Arrival: Ambulatory Information source: Patient Notes: 29-year-old female with history of fibromyalgia here for atraumatic low back pain. Started earlier today. No injuries. Says that she is worried because she is not peeing very much even that she is drinking normal amounts. No fevers or chills. No nausea or vomiting. General: No acute distress Cardio: Regular rate and rhythm Pulmonary clear to auscultation Abdomen nontender Musculoskeletal bilateral paralumbar tenderness without midline tenderness or step-off I have greeted and performed a rapid initial assessment of this patient. A comprehensive ED assessment and evaluation of the patient, analysis of test results and completion of the medical decision making process will be conducted by additional ED providers. TRAVEL OUTSIDE OF THE [place] IN LAST 30 DAYS: No - Related Data Allergies/Adverse Reactions: cyclobenzaprine HCl [From [employer]] Adverse Reaction (Verified 03/01/20 22:33) Home Medications: percocet Past Medical History - Social History Frequency of alcohol use: None Drug Abuse: Marijuana Renal/ Medical History: Denies: Hx Peritoneal Dialysis GI Medical History: Reports: Hx Gastroesophageal Reflux Disease Musculoskeltal Medical History: Reports Hx Arthritis, Reports Hx Fibromyalgia, Reports Hx Musculoskeletal Deformity Past Surgical History: Reports: Hx Hysterectomy, Hx Orthopedic Surgery - left knee arthroscopic surgery, Hx Tonsillectomy, Hx Tubal Ligation - Immunizations Immunizations up to date: No Hx Diphtheria, Pertussis, Tetanus Vaccination: No Physical Exam - Vital signs Vitals: Temp Pulse Resp BP Pulse Ox 98.0 F 97 16 135/78 H 93 03/01/20 22:28 03/01/20 22:28 03/01/20 22:28 03/01/20 22:28 03/01/20 22:28 Course - Vital Signs Vital signs: Temp Pulse Resp BP Pulse Ox 98.0 F 97 16 135/78 H 93 03/01/20 22:28 03/01/20 22:28 03/01/20 22:28 03/01/20 22:28 03/01/20 22:28 Doctor's Discharge - Discharge Referrals: JU EDWARDS MD [Primary Care Provider] - Follow up as needed
--- NOTE | 2020-03-01 23:34 | RADIOLOGY REPORT (SQ) ---
EXAM DESCRIPTION: XR LUMBAR SPINE ANTEROPOSTERIOR, LATERAL, AND OBLIQUES COMPLETED DATE/TME: 03/01/2020 22:33 CLINICAL HISTORY: 49 years ,Female lbp COMPARISON: None. TECHNIQUE: Five views FINDINGS: Vertebral body alignment is unremarkable. No acute fractures are identified. Four nonrib-bearing vertebral bodies. Narrowing of the L4 S1 disc interspace. Vascular calcification. IMPRESSION: No acute fracture is identified.
[2020-03-02 01:29] LABS: APPEARANCE,URINE SLIGHTLY-CLOUDY; BILIRUBIN,URINE NEGATIVE (NEGATIVE); COLOR,URINE YELLOW; GLUCOSE, URINE NEGATIVE (NEGATIVE); KETONES,URINE NEGATIVE (NEGATIVE); PROTEIN,URINE 30 mg/dL (NEGATIVE); URINE SPECIFIC GRAVITY 1.029; UROBILINOGEN,URINE NEGATIVE mg/dL (<2.0)
--- NOTE | 2020-03-02 09:10 | ER Document Report ---
HPI - HPI Time Seen by Provider: 03/01/20 22:32 Pain Level: 5 Notes: RME HPI: 49-year-old female with history of fibromyalgia here for atraumatic low back pain. Started earlier today. No injuries. Says that she is worried because she is not peeing very much even that she is drinking normal amounts. No fevers or chills. No nausea or vomiting. - ROS Systems Reviewed and Negative: Yes All other systems reviewed and negative - CONSTITUTIONAL Constitutional: DENIES: Fever, Chills - REPRODUCTIVE Reproductive: DENIES: : - MUSCULOSKELETAL Musculoskeletal: REPORTS: Back Pain Past Medical History - General Information source: Patient - Social History Smoking Status: Never Smoker Frequency of alcohol use: None Drug Abuse: Marijuana Family History: Malignancy Renal/ Medical History: Denies: Hx Peritoneal Dialysis GI Medical History: Reports: Hx Gastroesophageal Reflux Disease Musculoskeletal Medical History: Reports Hx Arthritis, Reports Hx Fibromyalgia, Reports Hx Musculoskeletal Deformity Past Surgical History: Reports: Hx Hysterectomy, Hx Orthopedic Surgery - left knee arthroscopic surgery, Hx Tonsillectomy, Hx Tubal Ligation - Immunizations Immunizations up to date: No Hx Diphtheria, Pertussis, Tetanus Vaccination: No Vertical Provider Document - CONSTITUTIONAL Notes: PHYSICAL EXAMINATION: GENERAL: Appears older than stated age, well nourished, mild distress noted. HEAD: Atraumatic, normocephalic. EYES: Pupils equal round and reactive to light, extraocular movements intact, conjunctiva are normal. ENT: Nares patent, oropharynx clear without exudates. Moist mucous membranes. NECK: Normal range of motion, supple without lymphadenopathy LUNGS: Breath sounds clear to auscultation bilaterally and equal. No wheezes rales or rhonchi. HEART: Regular rate and rhythm without murmurs ABDOMEN: Soft, nontender, nondistended abdomen. No guarding, no rebound. No masses appreciated. Female : No CVA tenderness. Musculoskeletal: Normal range of motion, no pitting or edema. No cyanosis. Tenderness across the lumbar paraspinous region, no vertebral tenderness, step- off or deformity. NEUROLOGICAL: Cranial nerves grossly intact. Normal speech, normal gait. Normal sensory, motor exams PSYCH: Normal mood, normal affect. SKIN: Warm, Dry, normal turgor, no rashes or lesions noted. - INFECTION CONTROL TRAVEL OUTSIDE OF THE [place] IN LAST 30 DAYS: No Course - Re-evaluation Re-evalutation: 03/02/20 09:23 At the time of my initial evaluation patient has been waiting in the emergency department for 12 hours. She was febrile through the night when vital signs were checked. She is writhing around and appears to be in pain. Her urinalysis does show large leukocyte esterase. She did not receive the Toradol that was ordered at 2200. I have now put in orders for lab work to make sure she does not have an elevated white count, IV fluids and IV Toradol. We will need to make sure she is feeling better prior to discharging her home. Patient is in agreement with this plan. I profusely apologized for the patient's wait time. Patient reports she feels much improved after administration of IV Toradol and IV fluids here in the emergency department. CBC was unremarkable. Chemistry did show hyponatremia with a sodium of 129.9. This was redrawn after she received IV fluids. Repeat sodium was 133. When I went to go discharge the patient the patient had eloped from the room. The nursing staff believes she may still have an IV in her arm. They are attempting to contact the patient. - Vital Signs Vital signs: Temp Pulse Resp BP Pulse Ox 99.3 F 78 18 125/67 93 03/02/20 04:30 03/02/20 04:30 03/02/20 01:16 03/02/20 04:30 03/02/20 04:30 - Laboratory Result Diagrams: 03/02/20 10:05 03/02/20 11:27 Laboratory results interpreted by me: 03/02/20 01:01 Urine Protein 30 H Leukocyte Esterase Rfl LARGE H Discharge - Discharge Clinical Impression: Eloped from emergency department Urinary tract infection Qualifiers: Urinary tract infection type: site unspecified Hematuria presence: without hematuria Qualified Code(s): N39.0 - Urinary tract infection, site not specified Back pain Qualifiers: Back pain location: low back pain Chronicity: acute Back pain laterality: unspecified Sciatica presence: unspecified whether sciatica present Qualified Code(s): M54.5 - Low back pain Condition: Fair Disposition: HOME, SELF-CARE Referrals: JU EDWARDS MD [Primary Care Provider] - Follow up as needed
[2020-03-02] MEDS ORDERED: KETOROLAC TROMETHAMINE INJ/PF 30 MG/1 ML SDV IV ONE (09:22)
[2020-03-02] MEDS ORDERED: NORMAL SALINE 1000 ML 1,000 ML IV ONE (09:22)
--- NOTE | 2020-03-02 10:15 | RADIOLOGY REPORT (SQ) ---
EXAM DESCRIPTION: CT ABD/PELVIS NO ORAL OR IV IMAGES COMPLETED DATE/TIME: 03/02/2020 9:53 am REASON FOR STUDY: low back pain/UTI/eval for renal stones COMPARISON: 01/12/2019 TECHNIQUE: CT scan of the abdomen and pelvis performed without intravenous or oral contrast. Images reviewed with lung, soft tissue, and bone windows. Reconstructed coronal and sagittal MPR images revi ewed. All images stored on PACS. All CT scanners at this facility use dose modulation, iterative reconstruction, and/or weight based d osing when appropriate to reduce radiation dose to as low as reasonably achievable (ALARA). [facility]: Dose Right [facility]: CareDose [facility]: Dose Right [facility]: Teradose 4D [facility]: [employer] RADIATION DOSE: CT Rad equipment meets quality standard of care and radiation dose reduction techniq ues were employed. CTDIvol: 8.6 mGy. DLP: 430 mGy-cm.mGy. LIMITATIONS: None. FINDINGS: LOWER CHEST: No significant findings. No nodules or infiltrates. NON-CONTRASTED LIVER, SPLEEN, ADRENALS: Evaluation limited by lack of IV contrast. No identified sign ificant masses. PANCREAS: No masses. No peripancreatic inflammatory changes. GALLBLADDER: No identified stones by CT criteria. No inflammatory changes to suggest cholecystitis. RIGHT KIDNEY AND URETER: No solid masses. No significant calcification. No hydronephrosis or hydroure ter. LEFT KIDNEY AND URETER: No solid masses. No significant calcification. No hydronephrosis or hydrouret er. AORTA AND RETROPERITONEUM: No aneurysm. No retroperitoneal masses or adenopathy. BOWEL AND PERITONEAL CAVITY: No obvious masses or inflammatory changes. No free fluid. APPENDIX: Normal. PELVIS, BLADDER, AND ABDOMINAL WALL:No abnormal masses. No free fluid. Bladder normal. BONES: No significant findings. OTHER: No other significant finding. IMPRESSION: NO SIGNIFICANT OR ACUTE PROCESS IN THE ABDOMEN OR PELVIS. TECHNICAL DOCUMENTATION: JOB ID: [id number] Quality ID # [id number]: Final reports with documentation of one or more dose reduction techniques (e.g., Au tomated exposure control, adjustment of the mA and/or kV according to patient size, use of iterative reconstruction technique) 2010 [employer]- All Rights Reserved Reading location - IP/workstation name: [email or web address]
[2020-03-02 10:29] LABS: ABSOLUTE EOSINOPHILS # (AUTO) 0.1 10^3/uL (0.0-0.6); ABSOLUTE LYMPHOCYTES (AUTO) 1.1 10^3/uL (0.5-4.7); ABSOLUTE MONOCYTES (AUTO) 0.7 10^3/uL (0.1-1.4); ABSOLUTE NEUT (AUTO) 4.4 10^3/uL (1.7-8.2); BASOPHILS % (AUTO) 0.5 % (0-2); EOSINOPHILS % (AUTO) 1.5 % (0-6); HEMATOCRIT 33.8 % (36.0-47.0); HEMOGLOBIN 11.5 g/dL (12.0-15.5); LYMPHOCYTES % (AUTO) 18.1 % (13-45); MEAN CORPUSCULAR HEMOGLOBIN 28.8 pg (27.0-33.4); MEAN CORPUSCULAR HGB CONC 34.2 g/dL (32.0-36.0); MEAN CORPUSCULAR VOLUME 84 fl (80-97); MONOCYTES % (AUTO) 10.4 % (3-13); PLATELET COUNT 361 10^3/uL (150-450); RED BLOOD COUNT 4.01 10^6/uL (3.72-5.28); RED CELL DISTRIBUTION WIDTH 13.9 % (11.5-14.0); SEGMENTED NEUTROPHILS % (AUTO) 69.5 % (42-78); TOTAL CELLS COUNTED % (AUTO) 100 %; WHITE BLOOD COUNT 6.3 10^3/uL (4.0-10.5)
[2020-03-02 10:39] LABS: ALKALINE PHOSPHATASE 73 U/L (38-126); ANION GAP 12 (5-19); ASPARTATE AMINO TRANSFERASE 20 U/L (14-36); BILIRUBIN,DIRECT 0.2 mg/dL (0.0-0.4); BILIRUBIN,TOTAL 1.2 mg/dL (0.2-1.3); BLOOD UREA NITROGEN 10 mg/dL (7-20); CALCIUM 9.3 mg/dL (8.4-10.2); CARBON DIOXIDE 24 mmol/L (22-30); CHLORIDE 94 mmol/L (98-107); GLUCOSE 111 mg/dL (75-110); POTASSIUM 3.7 mmol/L (3.6-5.0); TOTAL PROTEIN 7.1 g/dL (6.3-8.2)
[2020-03-02 11:06] VITALS: BP 128/62
[2020-03-02 11:58] LABS: ANION GAP 12 (5-19); BLOOD UREA NITROGEN 9 mg/dL (7-20); CALCIUM 9.5 mg/dL (8.4-10.2); CARBON DIOXIDE 24 mmol/L (22-30); CHLORIDE 98 mmol/L (98-107); GLUCOSE 110 mg/dL (75-110); POTASSIUM 3.8 mmol/L (3.6-5.0)
== END 2020-03-02 12:00 | disposition home or self-care (01) ==
LOC: ER 22:22
DX: N39.0 Urinary tract infection, site not specified (principal); M54.5 Low back pain; F12.10 Cannabis abuse, uncomplicated; E87.1 Hypo-osmolality and hyponatremia; Z53.20 Procedure and treatment not carried out because of patient's decision for unspecified reasons
CPT/HCPCS: 99285; 96361; 96374; 36415; 85025; 80053; 81001; 72110; 74176; J1885; J7030